=== PATIENT | female | born 1995 | race Caucasian/White ===

== ENCOUNTER 2020-06-28 13:10 | Emergency (ER) | payer SELFPAY ==
[~2020-06-28] VITALS: Ht 175.3 cm; Wt 93.1 kg
[2020-06-28] MEDS ORDERED: IBUPROFEN 200 MG TABLET. PO ONE (13:45)
[2020-06-28] MEDS ORDERED: cefTRIAXone IM 500 MG VIAL. IM ONE (13:45)
[2020-06-28] MEDS ORDERED: AZITHROMYCIN 250 MG TABLET. PO ONE (13:45)
--- NOTE | 2020-06-28 13:57 | PHYS DOC ---
Past Medical History Past Medical History: No Pertinent History Past Surgical History: Cholecystectomy Smoking Status: Current Every Day Smoker Alcohol Use: None General Adult EDM: Chief Complaint: PELVIC PAIN HPI: HPI: Patient is a 25 year old female who presents with 2 months ago was diagnosed with chlamydia and was never treated. She states she is been in [facility] and was just released. She states that it was an easy place to leave so she just never came and got treated. She states she has been having some low mid abdominal pain and low back pain for the last month or so. She states she continues to have white discharge. Rates her pain a cramping nonradiating 5 out of 10. She states she has not had sexual intercourse for least the last couple months. Patient denies fever, nausea, vomiting, diarrhea, chest pain, shortness of air, urinary symptoms, body aches or chills. She has a history of drug abuse, cholecystectomy and is a smoker. Review of Systems: Review of Systems: Constitutional: Denies fever or chills. [] Eyes: Denies change in visual acuity. [] HENT: Denies nasal congestion or sore throat. [] Respiratory: Denies cough or shortness of breath. [] Cardiovascular: Denies chest pain or edema. [] GI: + abdominal pain, denies nausea, vomiting, bloody stools or diarrhea. [] : Denies dysuria. + Vaginal discharge [] Musculoskeletal: + back pain or denies joint pain. [] Integument: Denies rash. [] Neurologic: Denies headache, focal weakness or sensory changes. [] Endocrine: Denies polyuria or polydipsia. [] Lymphatic: Denies swollen glands. [] Psychiatric: Denies depression or anxiety. [] Heart Score: C/O Chest Pain: No Risk Factors: Risk Factors: DM, Current or recent (<one month) smoker, HTN, HLP, family history of CAD, obesity. Risk Scores: Score 0 - 3: 2.5% MACE over next 6 weeks - Discharge Home Score 4 - 6: 20.3% MACE over next 6 weeks - Admit for Clinical Observation Score 7 - 10: 72.7% MACE over next 6 weeks - Early Invasive Strategies Current Medications: Current Medications Medications (Trade) Dose Ordered Sig/Safia Start Time Stop Time Status Last Admin Dose Admin Ibuprofen (Motrin) 600 mg 1X ONCE 06/28/20 13:45 06/28/20 13:46 UNV Physical Exam: PE: Constitutional: Well developed, well nourished, no acute distress, non-toxic appearance. [] HENT: Normocephalic, atraumatic, bilateral external ears normal, oropharynx moist, no oral exudates, nose normal. [] Eyes: PERRLA, EOMI, conjunctiva normal, no discharge. [] Neck: Normal range of motion, no tenderness, supple, no stridor. [] Cardiovascular:Heart rate regular rhythm, no murmur [] Lungs & Thorax: Bilateral breath sounds clear to auscultation [] Abdomen: Bowel sounds normal, soft, low mid tenderness, no masses, no pulsatile masses. [] Skin: Warm, dry, no erythema, no rash. [] Back: No tenderness, no CVA tenderness. [] Extremities: No tenderness, no cyanosis, no clubbing, ROM intact, no edema. [] Neurologic: Alert and oriented X 3, normal motor function, normal sensory function, no focal deficits noted. [] Psychologic: Affect normal, judgement normal, mood normal. [] Current Patient Data: Vital Signs: Vital Signs Date Time Temp Pulse Resp B/P (MAP) Pulse Ox O2 Delivery O2 Flow Rate FiO2 06/28/20 13:31 98.1 91 18 125/76 (92) 99 Room Air 98.1 EKG: EKG: [] Radiology/Procedures: Radiology/Procedures: [] Impression: [facility] [address] [place], [place] [id number] IMAGING REPORT Signed PATIENT: SERGIO HOANG ACCOUNT: [id number] : 1995 LOCATION: ER AGE: 25 SEX: F EXAM STATUS: REG ER ORD. PHYSICIAN: SETH BARRERA APRN REASON: pelvic pain and tenderness, untreated std PROCEDURE: CT PELVIS W/CONTRAST INDICATION: Reason: pelvic pain and tenderness, untreated std / Spl. Instructions: OMNI 300 INJ 75 MLS / History: . COMPARISON: None. TECHNIQUE: Axial CT images obtained through the pelvis with contrast. One or more of the following individualized dose reduction techniques were utilized for this examination: 1. Automated exposure control; 2. Adjustment of the mA and/or kV according to patient size; 3. Use of iterative reconstruction technique. FINDINGS: Urinary bladder is partially distended at time of exam. Uterus is visualized. There is some fluid seen within the pelvis with mild prominence of the peritoneum. This includes within the right greater than left hemipelvis posterior to the uterus with this region of fluid measuring up to about 7 cm. There is some fullness of the left adnexa with a low density region within. There is some haziness to the fat within the right hemipelvis. Appendix measures approximately 6 mm which is upper limits of normal. There is some sclerosis at the sacroiliac joints which could be from chronic sacroiliitis or degenerative changes. IMPRESSION: * Small amount of fluid is seen within the pelvis with mild prominence of the peritoneum. Given this mild prominence of the peritoneum infectious/inflammatory causes are within the differential. This includes from causes such as pelvic inflammatory disease. Portions appear higher than simple density therefore a component of debris or blood within is possible. Would correlate with symptoms. * There is some fullness of the left adnexa with low density region within. Could be from a cyst in the area but it may be helpful to obtain a ultrasound to assess whether this is secondary to a simple cyst or an alternative low-density complex lesion. Electronically signed by: Jaylen Conley MD (06/28/2020 3:16 PM) [id number] DICTATED and SIGNED BY: JAYLEN CONLEY MD DATE: 06/28/20 [id number] [facility] [address] [place] [address] IMAGING REPORT Signed PATIENT: SERGIO HOANG ACCOUNT: [id number] : 1995 LOCATION: ER AGE: 25 SEX: F EXAM STATUS: REG ER ORD. PHYSICIAN: SETH BARRERA APRN REASON: PID, LEFT ADNEXAL ABNORMALITY SEEN ON CT SCAN TODAY PROCEDURE: PELVIS W/TV Exam: Ultrasound pelvis Indication: Left adnexal abnormality Technique: Real-time grayscale and color Doppler images of the pelvis were obtained by the department jointer submarine cable. Comparisons: None FINDINGS: Uterus measures 8.4 x 6.6 x 4.4 cm. Endometrium is 4 mm in thickness. Right ovary measures 3.3 x 1.8 x 2.5 cm. Left ovary measures 4.1 x 2.8 x 2.5 cm. Vascular flow identified within the ovaries bilaterally. Small amount of free fluid noted predominantly at the left adnexa. IMPRESSION: 1. Small amount of free fluid at the left adnexa. 2. Otherwise, normal sonographic appearance of the uterus and ovaries. Electronically signed by: Pradeep Sierra MD (06/28/2020 4:32 PM) [facility] DICTATED and SIGNED BY: PRADEEP SIERRA MD DATE: 06/28/20 [id number] Course & Med Decision Making: Course & Med Decision Making Pertinent Labs and Imaging studies reviewed. (See chart for details) See HPI. Low mid abdomen is tender with palpation but otherwise abdomen is soft and nontender. No CVA tenderness. Skin pink warm and dry. Afebrile. Speaks in full clear sentences. Ambulatory with a steady gait. Pelvic Exam: Supervisor Tree Trimming present Abdomen: Low mid tenderness External Genitalia: Normal Skin Speculum: Normal vaginal mucosa, white cervical discharge Bimanual: No adnexal masses or tenderness, positive CMT Patient is given azithromycin, Rocephin, doxycycline, metronidazole in the ED. Patient is stable and not septic. Ultrasound shows no emergent findings. CT of the pelvis does show PID. I spoke to Dr. Liu and Dr. Phipps concerning this patient. We all feel that the patient is stable to go home. I will send her ho me on doxycycline and metronidazole. Patient to return for worsening symptoms. [] Liv Disclaimer: Liv Disclaimer: This electronic medical record was generated, in whole or in part, using a voice recognition dictation system. Departure Departure Impression: Primary Impression: PID (acute pelvic inflammatory disease) Additional Impression: Sexually transmissible disease Disposition: 01 DC HOME SELF CARE/HOMELESS Condition: STABLE Referrals: NO PCP (PCP) ISSAC ERNST Jr, MD Patient Instructions: Pelvic Inflammatory Disease, Sexually Transmitted Disease Additional Instructions: Follow-up with circuit judge if needed. Take medication as prescribed and with food. Do not drink any alcohol with these medication as a make you vomit. Take the medication until it is gone or you can become very sick. Scripts Ondansetron (ONDANSETRON ODT) 4 Mg Tab.rapdis 1 TAB PO PRN Q6-8HRS, #16 TAB Prov: SETH BARRERA APRN 06/28/20 Doxycycline Hyclate (DOXYCYCLINE HYCLATE) 100 Mg Tablet.dr 1 TAB PO BID, #20 TAB Prov: SETH BARRERA APRN 06/28/20 Metronidazole (METRONIDAZOLE) 500 Mg Tablet 1 TAB PO BID for 10 Days, #20 TAB 0 Refills Prov: SETH BARRERA APRN 06/28/20 SETH BARRERA APRN Jun 28, 2020 13:57
[2020-06-28] MEDS ORDERED: IV NORMAL SALINE 1000ML BAG 1,000 ML IV ONE (14:00)
[2020-06-28 14:10] LABS: BASO # 0.1 x10^3/uL (0.0-0.2); BASO % 1 % (0-3); EOS # 0.1 x10^3/uL (0.0-0.7); EOS % 2 % (0-3); HEMATOCRIT 29.1 % (36.0-47.0); HEMOGLOBIN 9.3 g/dL (12.0-15.5); LYMPH # 1.7 x10^3/uL (1.0-4.8); LYMPH % 30 % (24-48); MEAN CORPUSCULAR HEMOGLOBIN 23 pg (25-35); MEAN CORPUSCULAR HGB CONC 32 g/dL (31-37); MEAN CORPUSCULAR VOLUME 72 fL (79-100); MONO # 0.5 x10^3/uL (0.0-1.1); MONO % 8 % (0-9); NEUT # 3.4 x10^3/uL (1.8-7.7); NEUT % 59 % (31-73); PLATELET COUNT 259 x10^3/uL (140-400); RED BLOOD COUNT 4.06 x10^6/uL (3.50-5.40); RED CELL DISTRIBUTION WIDTH 16.5 % (11.5-14.5); WHITE BLOOD COUNT 5.8 x10^3/uL (4.0-11.0)
[2020-06-28 14:22] LABS: CALCIUM 8.2 mg/dL (8.5-10.1); CREATININE 0.8 mg/dL (0.6-1.0); GFR 86.7
[2020-06-28 14:23] LABS: BILIRUBIN,URINE NEGATIVE (NEG); CLARITY,URINE CLEAR; COLOR,URINE YELLOW; NITRITE,URINE NEGATIVE (NEG); PROTEIN,URINE NEGATIVE (NEG-TRACE); UROBILINOGEN,URINE 0.2 mg/dL (0.2 mg/dL)
[2020-06-28 14:24] LABS: BACTERIA,URINE 0 /HPF (0-FEW); RBC,URINE 0 /HPF (0-2); WBC,URINE 0 /HPF (0-4)
[2020-06-28 14:28] LABS: ALBUMIN 3.3 g/dL (3.4-5.0); ALBUMIN/GLOBULIN RATIO 0.8 (1.0-1.7); TOTAL BILIRUBIN 0.2 mg/dL (0.2-1.0); TOTAL PROTEIN 7.6 g/dL (6.4-8.2)
[2020-06-28] MEDS ORDERED: CONTRAST GIVEN. MC PRN (14:45)
[2020-06-28] MEDS ORDERED: IOHEXOL 300 MG/ML 100ML VIAL. IV ONE (14:45)
[2020-06-28 15:04] LABS: PLT ESTIMATE ADEQUATE (ADEQUATE)
[2020-06-28 15:05] LABS: ANISOCYTOSIS SLIGHT; HYPOCHROMIA MOD; MICROCYTOSIS MOD
--- NOTE | 2020-06-28 15:18 | RAD ---
INDICATION: Reason: pelvic pain and tenderness, untreated std / Spl. Instructions: OMNI 300 INJ 75 ML S / History: . COMPARISON: None. TECHNIQUE: Axial CT images obtained through the pelvis with contrast. One or more of the following individualized dose reduction techniques were utilized for this examinat ion: 1. Automated exposure control; 2. Adjustment of the mA and/or kV according to patient size; 3 . Use of iterative reconstruction technique. FINDINGS: Urinary bladder is partially distended at time of exam. Uterus is visualized. There is some fluid seen within the pelvis with mild prominence of the peritoneum. This includes with in the right greater than left hemipelvis posterior to the uterus with this region of fluid measuring up to about 7 cm. There is some fullness of the left adnexa with a low density region within. There is some haziness to the fat within the right hemipelvis. Appendix measures approximately 6 mm which is upper limits of n ormal. There is some sclerosis at the sacroiliac joints which could be from chronic sacroiliitis or degenera tive changes. IMPRESSION: * Small amount of fluid is seen within the pelvis with mild prominence of the peritoneum. Given this mild prominence of the peritoneum infectious/inflammatory causes are within the differential. This i ncludes from causes such as pelvic inflammatory disease. Portions appear higher than simple density t herefore a component of debris or blood within is possible. Would correlate with symptoms. * There is some fullness of the left adnexa with low density region within. Could be from a cyst in the area but it may be helpful to obtain a ultrasound to assess whether this is secondary to a simple cyst or an alternative low-density complex lesion. Electronically signed by: Saulo Gutierrez MD (06/28/2020 3:16 PM) [id number]
[2020-06-28] MEDS ORDERED: DOXYCYCLINE HYCLATE 100 MG in IV DEXTROSE 5% 100ML 100 ML IV ONE (15:30)
--- NOTE | 2020-06-28 16:34 | RAD ---
Exam: Ultrasound pelvis Indication: Left adnexal abnormality Technique: Real-time grayscale and color Doppler images of the pelvis were obtained by the department advertising sales consultant. Comparisons: None FINDINGS: Uterus measures 8.4 x 6.6 x 4.4 cm. Endometrium is 4 mm in thickness. Right ovary measures 3.3 x 1.8 x 2.5 cm. Left ovary measures 4.1 x 2.8 x 2.5 cm. Vascular flow identified within the ovaries bilaterally. Small amount of free fluid noted predominantly at the left adnexa. IMPRESSION: 1. Small amount of free fluid at the left adnexa. 2. Otherwise, normal sonographic appearance of the uterus and ovaries. Electronically signed by: Pradeep Khan MD (06/28/2020 4:32 PM) [email or web address]
[2020-06-28] MEDS ORDERED: DOXY-96 PO (17:04)
[2020-06-28] MEDS ORDERED: ONDA4TAB12 PO (17:04)
[2020-06-28] MEDS ORDERED: METR-34 PO (17:04)
[2020-06-28 19:00] VITALS: BP 125/81
[2020-06-29 19:26] LABS: GC PROBE Negative (Negative)
== END 2020-06-28 19:00 | disposition home or self-care (01) ==
LOC: ER 13:10
DX: N73.0 Acute parametritis and pelvic cellulitis (principal); A64 Unspecified sexually transmitted disease; F17.200 Nicotine dependence, unspecified, uncomplicated; Z90.49 Acquired absence of other specified parts of digestive tract
CPT/HCPCS: 36415; 72193; 76830; 76856; 80053; 81001; 81025; 83605; 83690; 85025; 87040; 87491; 87591; 96361; 96365; 96366; 96368; 96372; 99285; J0696; J3490; J7030; J7060; Q0111; Q9967